=== PATIENT | male | born 1960 | race Caucasian/White ===

== ENCOUNTER 2016-10-20 19:54 | Emergency (ER) | payer OTHER ==
[2016-10-20 20:03] VITALS: BP 144/99
[2016-10-20] MEDS ORDERED: TETANUS/DIPHTHERIA/PERTUSSIS 0.5 ML SYRINGE IM ONE ×2 (20:04→20:07)
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
== END 2016-10-20 20:19 | disposition home or self-care (01) ==
LOC: ED 19:54
DX: S51.851A Open bite of right forearm, initial encounter (principal); W50.3XXA Accidental bite by another person, initial encounter; Y99.0 Civilian activity done for income or pay; Z20.5 Contact with and (suspected) exposure to viral hepatitis; R03.0 Elevated blood-pressure reading, without diagnosis of hypertension; Z23 Encounter for immunization
CPT/HCPCS: 1040M; 36415; 80074; 87341; 87389; 90471; 90715; 99283

== ENCOUNTER 2018-11-18 12:40 | Outpatient (CLI) | payer OTHER ==
--- NOTE | 2018-11-18 16:31 | MRI Report ---
Reason: PAIN IN RIGHT ARM Procedure Date: 11/18/2018 Accession Number: [id number] / [id number] Procedure: MRI - Cervical Spine W/O CPT Code: FULL RESULT: MRI CERVICAL SPINE WITHOUT CONTRAST INDICATION: 58-year-old male. Neck pain with numbness, pain and tingling in right arm. TECHNIQUE: 1. Sagittal STIR, T1 and T2. 2. Axial T1, T2 and T2* COMPARISON: None. FINDINGS: There is minor retrolisthesis of C2 on C3, C5 on C6 and C6 on C7. Alignment is otherwise unremarkable. There is minimal anterior wedging of the T1 vertebral body, consistent with the sequela of old healed endplate compression fracture. The vertebral body heights are otherwise maintained. There is absence of normal T2 signal from the disks at all levels from C2-C3 to C6-C7, confirming disk degeneration. The C7-T1 and T1-T2 disks appear relatively well hydrated. There is mild to moderate degenerative disk space narrowing at C5-C6. The cervical disk space heights are otherwise preserved. The marrow signal intensity is unremarkable. Axial images: C2-C3: Small central/left paracentral protrusion indenting the ventral aspect of thecal sac. The mid sagittal canal diameter is reduced to about 9.3 mm. Only a small amount of CSF is seen surrounding the cord. No evidence of cord impingement. No significant foraminal stenosis. C3-C4: Posterior spondylotic bar with superimposed small posterior protrusion. Mass-effect on the ventral aspect of the thecal sac. The mid sagittal canal diameter is reduced to about 8.3 mm. The CSF surrounding the cord is effaced. There is no flattening or deformity of the cord to suggest impingement. No significant foraminal stenosis. C4-C5: Small extrusion, just to the right of midline with mass-effect on the ventral aspect of the thecal sac. The CSF space ventral to the right side of the cord is effaced. There is a small amount of CSF dorsal to the core with high-grade spinal stenosis. No obvious flattening or deformity of the cord to suggest impingement. No significant-appearing foraminal narrowing. C5-C6: Posterior spondylotic bar indenting the ventral aspect of the thecal sac and thickening of the ligamentum flavum causing mass-effect on the dorsal aspect of the dural sac. The mid sagittal canal diameter is reduced to about 8.1 mm. The CSF surrounding the cord is almost completely effaced. There is no flattening or deformity of the cord to suggest impingement. Facet and uncovertebral hypertrophy appear to be giving rise to foraminal stenoses that are moderate, bordering on moderate to severe bilaterally. C6-C7: There is a small extrusion posterolaterally on the right with mass-effect on the ventral aspect of the thecal sac. The CSF ventral to the right side of the cord is effaced. No evidence of cord impingement. There is mild to moderate bony foraminal narrowing bilaterally from facet and uncovertebral hypertrophy. C7-T1: No disk herniation or spinal stenosis. There is minor facet and uncovertebral hypertrophy without significant foraminal stenosis. The spinal cord appears to have a normal signal intensity throughout. IMPRESSION: 1. Multilevel degenerative disk disease with disk herniations or spondylotic bars at multiple levels as described. These changes are superimposed on a congenitally small spinal canal. There is associated spinal canal narrowing, most prominent at C3-C4 and C5-C6. There appears to be at least mild spinal stenosis at both levels. The CSF surrounding the cord is effaced or almost completely effaced. However, there is no apparent flattening or deformity of the cord to suggest impingement. 2. Potentially significant bony foraminal stenoses at C5-C6 bilaterally. There could be compromise of the exiting right and/or left C6 nerve roots. Recommend clinical correlation for possible C6 radiculopathy.
== END 2018-11-18 12:41 | disposition home or self-care (01) ==
LOC: DI 12:40
PROVIDERS: ATTEND Family Medicine
DX: M50.30 Other cervical disc degeneration, unspecified cervical region (principal); M48.02 Spinal stenosis, cervical region; M50.20 Other cervical disc displacement, unspecified cervical region
CPT/HCPCS: 72141

== ENCOUNTER 2018-12-15 21:46 | Emergency (ER) | payer OTHER ==
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
--- NOTE | 2018-12-15 22:31 | XRAY Report ---
Reason: SHOULDER INJ Procedure Date: 12/15/2018 Accession Number: [id number] / [id number] Procedure: XR - Shoulder 3 View RT CPT Code: FULL RESULT: EXAM: RIGHT SHOULDER RADIOGRAPHY EXAM DATE: 12/15/2018 10:03 PM. CLINICAL HISTORY: SHOULDER INJ. COMPARISON: None. TECHNIQUE: 3 views. FINDINGS: Bones: No acute fracture or suspicious bone lesion. Joints: The glenohumeral and acromioclavicular joints are unremarkable. Soft tissues: The partially imaged lung is unremarkable. IMPRESSION: No acute radiographic abnormalities. RADIA
[2018-12-15 22:32] VITALS: BP 140/90
== END 2018-12-15 22:31 | disposition home or self-care (01) ==
LOC: ED 21:46
DX: S43.421A Sprain of right rotator cuff capsule, initial encounter (principal); W01.0XXA Fall on same level from slipping, tripping and stumbling without subsequent striking against object, initial encounter; Y93.02 Activity, running; Y92.89 Other specified places as the place of occurrence of the external cause; Y99.0 Civilian activity done for income or pay; R03.0 Elevated blood-pressure reading, without diagnosis of hypertension
CPT/HCPCS: 99282; 99283

== ENCOUNTER 2019-05-03 09:55 | Outpatient (CLI) | payer OTHER ==
--- NOTE | 2019-05-03 11:44 | MRI Report ---
Reason: INJ OF RT SHOULDER Procedure Date: 05/03/2019 Accession Number: [id number] / [id number] Procedure: MRI - Shoulder RT W/O CPT Code: Final Report FULL RESULT: EXAM: RIGHT SHOULDER MRI WITHOUT CONTRAST EXAM DATE: 05/03/2019 11:12 AM. CLINICAL HISTORY: Right shoulder pain and limited range of motion. COMPARISON: SHOULDER 3 VIEW RT 12/15/2018 9:57 PM. TECHNIQUE: Multiplanar, multisequence T1-weighted and fluid-sensitive sequences of the shoulder without contrast. Other: None. FINDINGS: Acromioclavicular Region: The acromion is type II. There are enthesophytes at the inferior surface of the acromion. Small marginal osteophytes at the AC joint. The coracoacromial and coracoclavicular ligaments are intact. Small amount of fluid at the subacromial subdeltoid bursa. Glenohumeral Region: No subluxation. Small joint effusion. No loose bodies. Grade II-III chondromalacia at the humeral head and grade II chondromalacia of the glenoid. The glenohumeral ligaments and joint capsule are unremarkable. Bone Marrow: Small subcortical cysts at the greater tuberosity and posterior superior aspect of the humeral head. No acute fracture or bone lesions. Labrum: The labrum is unremarkable on this nonarthrographic study. Musculature/Rotator Cuff: There is an approximately 1.5 x 0.6 cm high-grade partial-thickness bursal surface tear at the distal end of the supraspinatus tendon. Tendinosis at the remaining supraspinatus tendon and at the infraspinatus tendon. The teres minor tendon is unremarkable. The subscapularis tendon is unremarkable. No edema or fatty atrophy. Biceps Tendon: Proximal long head biceps tendinosis is present. Other: The subcutaneous tissues are unremarkable. IMPRESSION: 1. High-grade partial-thickness bursal surface tear at the distal end of the supraspinatus tendon. There is also supraspinatus and infraspinatus tendinosis. 2. Proximal long head biceps tendinosis. 3. Mild AC joint osteoarthrosis. Small amount of fluid at the subacromial subdeltoid bursa. 4. Small glenohumeral joint effusion. Glenohumeral joint chondromalacia. RADIA
== END 2019-05-03 09:56 | disposition home or self-care (01) ==
LOC: DI 09:55
PROVIDERS: ATTEND Family Medicine
DX: S46.011A Strain of muscle(s) and tendon(s) of the rotator cuff of right shoulder, initial encounter (principal); M67.921 Unspecified disorder of synovium and tendon, right upper arm; M19.011 Primary osteoarthritis, right shoulder; M25.411 Effusion, right shoulder; M94.211 Chondromalacia, right shoulder

== ENCOUNTER 2023-04-26 15:33 | Emergency (ER) | payer OTHER ==
[2023-04-26 15:52] VITALS: BP 155/72; O2SAT 96
--- NOTE | 2023-04-26 16:46 | XRAY Report ---
PROCEDURE: Hand 3+V RT INDICATIONS: Trauma TECHNIQUE: 3 views of the hand(s) acquired. COMPARISON: None. FINDINGS: Bones: No fractures or dislocations. No suspicious bony lesions. Age-appropriate degenerative fong es are seen. Soft tissues: No suspicious soft tissue calcifications or masses. IMPRESSION: No acute bony abnormality. Please correlate with focal tenderness. If there is point tenderness (or other clinical concern for a fracture not seen on these plain films) then please consider a dedicated CT study or a short term fo llow up plain film series for further evaluation. Reviewed by: Delano Steanrs MD on 04/26/2023 3:45 PM [facility] Approved by: Delano Stearns MD on 04/26/2023 3:45 PM [facility] Station ID: [id number]
--- NOTE | 2023-04-26 17:04 | ED Physician Documentation ---
History of Present Illness - Stated complaint Stated Complaint: RT HAND PX - Chief complaint Chief Complaint: Trauma Ext - Additonal information Additional information: Patient 62-year-old male presenting to the emergency department with right thumb injury. Twisted thumb earlier today well wrestling while at work. 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 [id number]. Denies previous injuries to the same hand. Review of Systems Constitutional: denies: Fever, Myalgias Ears: denies: Loss of hearing Nose: denies: Rhinorrhea / runny nose Throat: denies: Dental pain / toothache Cardiac: denies: Chest pain / pressure Respiratory: denies: Dyspnea GI: denies: Abdominal Pain : denies: Dysuria PD PAST MEDICAL HISTORY - Past Medical History Past Medical History: No Cardiovascular: None - Past Surgical History Past Surgical History: No General: Appendectomy HEENT: Tonsil/Adenoidectomy - Present Medications Home Medications: Ambulatory Orders Medication Instructions Recorded Confirmed Tobramycin/Dexamethasone [Tobradex 1 drop LEFTEYE QID #1 drops.susp 06/15/15 Eye Drops] - Allergies Allergies/Adverse Reactions: Allergies Allergy/AdvReac Type Severity Reaction Status Date / Time No Known Drug Allergies Allergy Verified 10/20/16 20:03 - Social History Does the pt smoke?: No Smoking Status: Never smoker Does the pt drink ETOH?: No Does the pt have substance abuse?: No - Immunizations Immunizations are current?: Yes - POLST Patient has POLST: No PD ED PE NORMAL - General General: Alert and oriented X 3 - HEENT HEENT: Atraumatic - Extremities Extremities: Other (Some tenderness to palpation along the ulnar aspect of the right thumb. Full flexion, extension, abduction, adduction to the thumb. Normal capillary refill. Normal strength and opposition.) Results - Vitals Vitals: Vital Signs - 24 hr 04/26/23 15:42 Temperature 36.8 C Heart Rate 99 Respiratory 18 Rate Blood Pressure 155/72 H O2 Saturation 96 Oxygen O2 Source Room air PD Medical Decision Making - ED course Complexity details: reviewed results, d/w patient ED course: Patient 62-year-old male. 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 Presents to the emergency department after twisting thumb while wrestling in individual at work. Afebrile, hemodynamically stable. Strong pulses. No tenderness to palpation along the wrist with full and complete range of motion to the wrist. No anatomic snuffbox tenderness. Full range of flexion, extension, adduction, abduction of the thumb. Normal strength in abduction. No indications tendon injury. X-rays negative for acute fracture. Will provide thumb spica. Instructions and use [id number] medications. L&I paperwork completed. Clear return precautions given. Departure - Departure Disposition: 01 Home, Self Care Clinical Impression: Thumb sprain Qualifiers: Encounter type: initial encounter Sprain of finger site: unspecified site Laterality: right Qualified Code(s): S63.601A - Unspecified sprain of right thumb, initial encounter Instructions: ED Sprain Finger Comments: Thank you for allowing us to care for you today at [facility]. The x-rays today did not show any acute fracture. Please use the splint provided here in the emergency department as needed. [id number] medications such as 650 mg Tylenol and 600 mg ibuprofen can be taken every 8 hours for pain control. Ice packs and keeping your injured extremity elevated are also excellent strategies for decreasing swelling and thereby decreasing pain. You should be feeling significantly better over the course of the next week. If 7 days go by and you do not have notable improvement please return to the emergency department or follow-up with your primary care doctor for reevaluation. Forms: PCP List
== END 2023-04-26 17:22 | disposition home or self-care (01) ==
LOC: ED 15:33
DX: S63.601A Unspecified sprain of right thumb, initial encounter (principal); X50.1XXA Overexertion from prolonged static or awkward postures, initial encounter; Y93.72 Activity, wrestling; Y99.0 Civilian activity done for income or pay
CPT/HCPCS: 99283

== ENCOUNTER 2023-12-25 08:52 | Outpatient (CLI) | payer MEDICARE, OTHER ==
--- NOTE | 2023-12-25 10:28 | Ultrasound Report ---
PROCEDURE: Aorta Screening INDICATIONS: FORMER SMOKER TECHNIQUE: Real time scanning was performed of the aorta and iliac arteries, with image documentatio n. COMPARISON: None. FINDINGS: Aorta: Proximal aortic diameter measures 2.2 x 2.2 cm. Mid-aorta measures 1.6 x 1.6 cm. Distal aor tic diameter is 1.2 x 1.2 cm. Iliac arteries: Right common iliac artery measures 0.9 cm. Left common iliac artery measures 0.9 cm . IMPRESSION: Unremarkable screening aortic ultrasound. No further follow-up recommended. Recommended intervals for follow-up imaging of ectatic aortas and abdominal aortic aneurysms, per ACR consensus guidelines: 2.5-2.9 cm: 5 years 3.0-3.4 cm: 3 years 3.5-3.9 cm: 2 years 4.0-4.4 cm: 1 year 4.5-4.9 cm: 6 months + endovascular referral 5.0-5.5 cm: 3-6 months + endovascular referral Reviewed by: Marc Aquino MD on 12/25/2023 10:27 AM PDT Approved by: Marc Aquino MD on 12/25/2023 10:27 AM PDT Station ID: [id number]
== END 2023-12-25 08:53 | disposition home or self-care (01) ==
LOC: DI 08:52
PROVIDERS: ATTEND Family Medicine
DX: Z13.6 Encounter for screening for cardiovascular disorders (principal); Z87.891 Personal history of nicotine dependence